=== PATIENT | male | born 1965 | race Caucasian/White ===

== ENCOUNTER 2020-08-26 10:35 | Observation (INO) ==
[2020-08-26 11:16] LABS: Basophils # 0.1 K/mcL (0.0-0.2); Basophils % 0.8 %; Eosinophils # 0.1 K/mcL (0.0-0.6); Eosinophils % 1.6 %; Hematocrit 46.2 % (37.5-50.1); Hemoglobin 15.6 g/dL (12.9-16.9); Immature Granulocytes % 0.3 % (0-4); Lymphocytes # 2.8 K/mcL (0.6-4.6); Lymphocytes % 31.1 %; Mean Corpuscular HGB Conc 33.8 g/dL (31.6-35.5); Mean Corpuscular Hemoglobin 29.6 pg (28.0-33.3); Mean Corpuscular Volume 87.7 fL (83.0-100.0); Mean Platelet Volume 9.7 fL (9.4-12.4); Monocytes # 0.7 K/mcL (0.0-1.3); Monocytes % 8.1 %; Neutrophils # 5.2 K/mcL (1.6-8.9); Platelet Count 205 K/mcL (140-400); Red Blood Count 5.27 M/mcL (4.19-5.50); Segmented Neutrophils % 58.1 %; White Blood Count 8.9 K/mcL (4.3-11.1)
[2020-08-26] MEDS ORDERED: 0.9 % Sodium Chloride 1,000 ML IVC ONE (11:16)
[2020-08-26 11:49] LABS: BUN/Creatinine Ratio 15 (6-26); Blood Urea Nitrogen 12 mg/dL (6-20); Calcium 9.5 mg/dL (8.6-10.3); Carbon Dioxide 24 mEq/L (23-29); Chloride 104 mEq/L (98-107); Glucose 227 mg/dL (70-105); Osmolality,Calculated 293 (280-300); Potassium 4.3 mEq/L (3.5-5.1); Sodium 138 mEq/L (136-145); Troponin I < 0.03 ng/mL (< 0.04); eGFR For African Americans > 60 (> 60); eGFR For Non-African Americans > 60 (> 60)
[2020-08-26 11:59] LABS: INR 1.1; Prothrombin Time 13.2 Seconds (9.4-12.1)
[2020-08-26 12:02] LABS: Activated Partial Thrombo Time 29.2 Seconds (26.0-36.0)
[2020-08-26] MEDS ORDERED: Naloxone 0.4 MG/ML INJ IVP PRN (12:35)
[2020-08-26] MEDS ORDERED: Ondansetron 4 MG/2 ML VIAL IVP PRN (12:35)
[2020-08-26] MEDS ORDERED: Perflutren Lipid Microsphere 1.3 ML in 0.9 % Sodium Chloride 8.7 ML IVP PRN (12:37)
[2020-08-26] MEDS ORDERED: Dextrose Gel 15 GM/37.5 ML TUBE PO PRN ×2 (12:39)
[2020-08-26] MEDS ORDERED: *HR* Dextrose 50 % in Water (Vial) 50 ML VIAL IVP PRN (12:39)
[2020-08-26] MEDS ORDERED: D5% in Water 1,000 ML IVC PRN (12:39)
[2020-08-26 13:26] LABS: Magnesium 1.8 mg/dL (1.6-2.6)
[2020-08-26 13:40] LABS: Thyroid Stimulating Hormone 1.139 mcIU/mL (0.340-5.600)
[2020-08-26] MEDS: Metoprolol XL (24 HR) Succ 25 MG TAB.ER.24H PO SCH (14:31)
[2020-08-26] MEDS: Insulin LISPRO 300 UNITS/3 ML VIAL SUBQ SCH (16:24)
[2020-08-26] MEDS: *HR* Rivaroxaban 10 MG TABLET PO SCH (17:49)
[2020-08-26] MEDS ORDERED: *HR* Heparin 5,000 UNIT/ML VIAL SQ SCH (18:00)
[2020-08-26] MEDS ORDERED: Enoxaparin Weight Dosing SQ SCH (18:00)
[2020-08-26] MEDS ORDERED: *HR* Metoprolol 5 MG/5 ML VIAL IVP ONE ×2 (21:05→21:07)
[2020-08-26] MEDS: Insulin DETEMIR 100 UNIT/ML X5UNITS SUBQ SCH (21:28)
[2020-08-27 01:24] LABS: Basophils # 0.1 K/mcL (0.0-0.2); Basophils % 0.6 %; Eosinophils # 0.2 K/mcL (0.0-0.6); Eosinophils % 1.7 %; Hematocrit 44.3 % (37.5-50.1); Hemoglobin 14.8 g/dL (12.9-16.9); Immature Granulocytes % 0.3 % (0-4); Lymphocytes # 4.5 K/mcL (0.6-4.6); Lymphocytes % 41.1 %; Mean Corpuscular HGB Conc 33.4 g/dL (31.6-35.5); Mean Corpuscular Hemoglobin 29.6 pg (28.0-33.3); Mean Corpuscular Volume 88.6 fL (83.0-100.0); Mean Platelet Volume 10.2 fL (9.4-12.4); Monocytes # 0.8 K/mcL (0.0-1.3); Neutrophils # 5.4 K/mcL (1.6-8.9); Platelet Count 192 K/mcL (140-400); Red Cell Distribution Width 12.9 % (11.5-14.5); Segmented Neutrophils % 49.3 %
[2020-08-27 01:47] LABS: BUN/Creatinine Ratio 13 (6-26); Blood Urea Nitrogen 10 mg/dL (6-20); Calcium 9.2 mg/dL (8.6-10.3); Carbon Dioxide 23 mEq/L (23-29); Chloride 105 mEq/L (98-107); Glucose 105 mg/dL (70-105); Osmolality,Calculated 283 (280-300); Potassium 3.7 mEq/L (3.5-5.1); Sodium 137 mEq/L (136-145); eGFR For African Americans > 60 (> 60); eGFR For Non-African Americans > 60 (> 60)
[2020-08-27] MEDS: lisinopriL 20 MG TABLET PO SCH (07:39)
[2020-08-27] MEDS: Metoprolol XL (24 HR) Succ 25 MG TAB.ER.24H PO SCH (07:40)
[2020-08-27] MEDS: Insulin LISPRO 300 UNITS/3 ML VIAL SUBQ SCH ×3 (08:06→17:08)
[2020-08-27] MEDS ORDERED: Metoprolol XL (24 HR) Succ 25 MG TAB.ER.24H PO ONE (08:43)
[2020-08-27] MEDS ORDERED: Metoprolol XL (24 HR) Succ 25 MG TAB.ER.24H PO SCH (09:00)
[2020-08-27] MEDS ORDERED: Nitroglycerin 0.4 MG TAB.SUBL SL PRN (09:33)
[2020-08-27] MEDS ORDERED: DilTIAZem CD (24hr) 180 MG CAP.ER.24H PO SCH (11:15)
[2020-08-27] MEDS ORDERED: DilTIAZem CD (24hr) 180 MG CAP.ER.24H PO ONE (12:01)
[2020-08-27] MEDS: DilTIAZem 50 MG/50 ML IV.SOLN IVC SCH ×3 (14:37→22:51)
[2020-08-27] MEDS: Aspirin 81 MG TAB.CHEW PO SCH (14:47)
[2020-08-27] MEDS: Thiamine (B-1) 100 MG TABLET PO SCH (14:47)
[2020-08-27] MEDS: Folic Acid 1 MG TABLET PO SCH (14:47)
[2020-08-27] MEDS: *HR* Rivaroxaban 10 MG TABLET PO SCH (17:07)
[2020-08-27] MEDS: Metoprolol XL (24 HR) Succ 50 MG TAB.ER.24H PO SCH (20:36)
[2020-08-27] MEDS: Insulin DETEMIR 100 UNIT/ML X5UNITS SUBQ SCH (20:37)
[2020-08-28] MEDS: DilTIAZem 50 MG/50 ML IV.SOLN IVC SCH (04:02)
[2020-08-28] MEDS: Insulin LISPRO 300 UNITS/3 ML VIAL SUBQ SCH ×2 (08:39→13:15)
[2020-08-28] MEDS: Folic Acid 1 MG TABLET PO SCH (08:41)
[2020-08-28] MEDS: lisinopriL 20 MG TABLET PO SCH (08:41)
[2020-08-28] MEDS: Aspirin 81 MG TAB.CHEW PO SCH (08:41)
[2020-08-28] MEDS: Metoprolol XL (24 HR) Succ 50 MG TAB.ER.24H PO SCH (08:41)
[2020-08-28] MEDS: Thiamine (B-1) 100 MG TABLET PO SCH (08:41)
[2020-08-28] MEDS ORDERED: Metoprolol XL (24 HR) Succ 25 MG TAB.ER.24H PO SCH (09:00)
[2020-08-28] MEDS ORDERED: DilTIAZem CD (24hr) 240 MG CAP.ER.24H PO SCH (09:00)
[2020-08-28 10:31] VITALS: BP 118/83
[2020-08-28] MEDS ORDERED: DilTIAZem CD (24hr) 120 MG CAP.ER.24H PO ONE (13:31)
== END 2020-08-28 15:05 | disposition home or self-care (01) ==
LOC: 3BNU 10:35 → EMEROOARM 10:35 → SUATTDRO 13:01 → 3BNU 14:23
PROVIDERS: ADMIT Internal Medicine; ATTEND Internal Medicine